=== PATIENT | female | born 1980 | race Caucasian/White ===

== ENCOUNTER 2017-08-18 08:30 | Day surgery (SDC) | payer BC ==
[2017-08-15 09:09] LABS: EOSINOPHILS # (AUTO) 0.1 K/uL (0.0-0.4); LYMPHOCYTES # (AUTO) 1.9 K/uL (1.0-5.5); MONOCYTES # (AUTO) 0.3 K/uL (0.0-1.0)
[2017-08-15 09:18] LABS: CALCIUM 9.2 mg/dL (8.4-11.0); CREATININE 0.52 mg/dL (0.55-1.30); POTASSIUM 4.6 mmol/L (3.5-5.1)
[2017-08-15 09:35] LABS: BASOPHILS % (AUTO) 0.3 % (0.0-2.0); EOSINOPHILS % (AUTO) 1.2 % (0.0-4.0); HEMATOCRIT 38.8 % (36-48); HEMOGLOBIN 13.3 g/dL (12.0-16.0); MEAN CORPUSCULAR HEMOGLOBIN 30 pg (27-31); MEAN CORPUSCULAR HGB CONC 34 % (32-36); MEAN CORPUSCULAR VOLUME 88 fL (79.0-98.0); MONOCYTES % (AUTO) 3.8 % (1.7-9.3); NEUTROPHILS # (AUTO) 5.6 K/uL (1.8-7.7); NEUTROPHILS % (AUTO) 70.7 % (40.0-70.0); RED BLOOD CELL COUNT(AUTO) 4.42 MIL/uL (4.2-6.2); RED CELL DISTRIBUTION WIDTH 12.4 % (9.0-15.0); WHITE BLOOD COUNT (AUTO) 7.9 K/uL (4.8-10.8)
[2017-08-15 09:41] LABS: PLATELET COUNT (AUTO) 292 K/uL (130-430)
[~2017-08-18] VITALS: Ht 154.9 cm; Wt 89.8 kg
[2017-08-18] MEDS ORDERED: KETOROLAC TROMETHAMINE 30 MG VIAL IVP ONE (10:45)
[2017-08-18] MEDS ORDERED: MIDAZOLAM HCL 5 MG/5 ML VIAL IVP ONE (10:45)
[2017-08-18] MEDS ORDERED: SEVOFLURANE 15 MIN GAS INH ONE (10:45)
[2017-08-18] MEDS ORDERED: ROCURONIUM BROMIDE 10 MG/ML (ZEMURON) IV ONE (10:45)
[2017-08-18] MEDS ORDERED: PROPOFOL 200MG/ 20ML VIAL (DIPRIVAN) IV ONE (10:45)
[2017-08-18] MEDS ORDERED: ONDANSETRON HCL 4 MG/2 ML VIAL IVP ONE (10:45)
[2017-08-18] MEDS ORDERED: DEXAMETHASONE SOD PHOSPHATE 4 MG/ML VIAL IVP ONE (10:45)
[2017-08-18] MEDS ORDERED: fentaNYL CITRATE 250 MCG/5 ML AMP IV ONE (10:45)
[2017-08-18] MEDS ORDERED: LR 1,000 ML IV SCH (11:24)
[2017-08-18] MEDS ORDERED: HYDROmorphone 1 MG INJ. 1 MG/ML AMPUL IVP PRN (11:30)
[2017-08-18] MEDS ORDERED: MEPERIDINE HCL/PF 25 MG/ML DISP.SYRIN IVP PRN (11:30)
[2017-08-18] MEDS ORDERED: HYDROmorphone 2 MG/ML VIAL IVP PRN (11:30)
[2017-08-18] MEDS ORDERED: ONDANSETRON HCL 4 MG/2 ML VIAL IVP PRN (11:45)
[2017-08-18] MEDS ORDERED: IBUPROFEN 800 MG TABLET PO PRN (11:45)
[2017-08-18] MEDS ORDERED: OXYCODONE/ACETAMINOPHEN 5-325 TABLET PO PRN ×2 (11:45→14:30)
[2017-08-18] MEDS ORDERED: HYDROmorphone 2 MG/ML VIAL ONE (12:19)
[2017-08-18] MEDS: HYDROmorphone 2 MG/ML VIAL IVP PRN (12:20)
[2017-08-18] MEDS: OXYCODONE/ACETAMINOPHEN 5-325 TABLET ONE (13:55)
[2017-08-18 14:14] VITALS: BP_SYST 102
== END 2017-08-18 15:10 | disposition home or self-care (01) ==
LOC: SMU 08:30 → SDS 08:30
PROVIDERS: ATTEND Obstetrics & Gynecology
DX: N92.0 Excessive and frequent menstruation with regular cycle (principal); E78.00 Pure hypercholesterolemia, unspecified; Z98.890 Other specified postprocedural states; Z68.37 Body mass index [BMI] 37.0-37.9, adult; H65.03 Acute serous otitis media, bilateral; F43.29 Adjustment disorder with other symptoms; F31.9 Bipolar disorder, unspecified; G56.03 Carpal tunnel syndrome, bilateral upper limbs; G43.909 Migraine, unspecified, not intractable, without status migrainosus; E66.01 Morbid (severe) obesity due to excess calories; E55.9 Vitamin D deficiency, unspecified
CPT/HCPCS: 36415; 80048; 84703; 85025; 86886; 86900; 86901; 88305; J1100; J1170; J1885; J2250; J2405; J2704; J3010; J7120